=== PATIENT | female | born 1995 ===

== ENCOUNTER 2021-08-17 09:58 | Outpatient (CLI) | payer OTHER ==
[2021-08-17 19:54] LABS: SARS-CoV-2 PCR by NAA Not Detected (NotDetected)
== END 2021-08-17 09:59 | disposition home or self-care (01) ==
LOC: LABBT 09:58
PROVIDERS: ATTEND Internal Medicine Gastroenterology
DX: Z01.812 Encounter for preprocedural laboratory examination (principal); R13.10 Dysphagia, unspecified; Z20.822 Contact with and (suspected) exposure to COVID-19
CPT/HCPCS: U0003; U0005